=== PATIENT | male | born 1965 | race Caucasian/White ===

== ENCOUNTER 2024-01-19 12:01 | Observation (INO) | payer BC ==
[2024-01-19] MEDS ORDERED: Nitroglycerin 0.4 MG TAB 1 EACH ONE ×2 (12:36→13:51)
[2024-01-19] MEDS ORDERED: Aspirin Chewable 81 MG TAB ONE (12:36)
[2024-01-19 13:11] LABS: #Basophils 0.05 10x3/uL (0.0-0.2); %Basophils 0.7 % (0.0-1.0); %Eosinophils 3.6 % (0.0-10.0); %Lymphocytes 25.8 % (21.0-51.0); %Monocytes 7.9 % (0.0-10.0); %Neutrophils 61.6 % (42.0-75.0); Hematocrit 48.6 % (42.0-52.0); Hemoglobin 16.3 g/dL (14.0-18.0); Mean Corpuscular HGB CONC 33.5 g/dL (32.0-36.0); Mean Corpuscular Hemoglobin 28.7 pg (27.0-31.0); Mean Corpuscular Volume 85.7 fL (78.0-98.0); Mean Platelet Volume 9.9 fL (7.4-10.4); Platelet Count 215 10x3/uL (130-400); RBC Distribution Width 14.4 % (11.5-14.5); Red Blood Cell (RBC) Count 5.67 mill/uL (4.70-6.10)
[2024-01-19 13:28] LABS: ALT (SGPT) 12 U/L (8-55); AST (SGOT) 12 U/L (5-34); Albumin 3.4 g/dL (3.5-5.0); Alkaline Phosphatase 77 U/L (40-110); Anion Gap 12 mmol/L (10-20); BUN (Urea Nitrogen) 22 mg/dL (8.4-25.7); Bilirubin, Total 0.4 mg/dL (0.2-1.2); Calc. Creatinine Clearance 0 mL/min (70-130); Calcium 9.4 mg/dL (7.8-10.44); Carbon Dioxide 23 mmol/L (22-29); Chloride 109 mmol/L (98-107); Estimated GFR 59; Globulin 3.4 g/dL (2.4-3.5); Glucose 116 mg/dL (70-105); Lipase 13 U/L (8-78); Magnesium 2.1 mg/dL (1.6-2.6); Potassium 4.3 mmol/L (3.5-5.1); Protein, Total 6.8 g/dL (6.0-8.3); Sodium 140 mmol/L (136-145)
[2024-01-19 13:31] LABS: Troponin I Less than 0.010 ng/mL (< 0.028)
[2024-01-19] MEDS ORDERED: Nitroglycerin 2% Ointment 1 INCH/1 GM Packet ONE (13:52)
[2024-01-19] MEDS ORDERED: Nitroglycerin 0.4 MG TAB (25 Tab Bottle) SL PRN (14:16)
[2024-01-19 15:59] LABS: Troponin I Less than 0.010 ng/mL (< 0.028)
[2024-01-19 16:01] VITALS: BMI 29.2
[2024-01-19] MEDS ORDERED: FLU (Fluarix Triv) TS24-25(6MOS UP)/PF 45 MCG/0.5 ML Syringe IM ONE (16:45)
[2024-01-19 19:10] LABS: Troponin I 0.051 ng/mL (< 0.028)
[2024-01-19] MEDS: Famotidine 20 MG TAB PO SCH (21:01)
[2024-01-19] MEDS: Nitroglycerin 2% Ointment 1 INCH/1 GM Packet TOP SCH (21:01)
[2024-01-20 04:46] LABS: Anion Gap 10 mmol/L (10-20); BUN (Urea Nitrogen) 17 mg/dL (8.4-25.7); Calc. Creatinine Clearance 91 mL/min (70-130); Calcium 8.8 mg/dL (7.8-10.44); Carbon Dioxide 24 mmol/L (22-29); Chloride 108 mmol/L (98-107); Estimated GFR 78; Glucose 83 mg/dL (70-105); Potassium 4.1 mmol/L (3.5-5.1); Sodium 138 mmol/L (136-145)
[2024-01-20] MEDS: Aspirin Chewable 81 MG TAB PO SCH (08:20)
[2024-01-20] MEDS: Enoxaparin 40 MG (0.4 mL) SYRINGE SC SCH (08:21)
[2024-01-20 08:23] LABS: Troponin I 0.149 ng/mL (< 0.028)
[2024-01-21] MEDS: Acetaminophen 325 MG TAB PO PRN (03:32)
[2024-01-21 06:06] LABS: Cardiac Risk 5.4 (Less than 4.5)
[2024-01-21] MEDS ORDERED: Heparin 10,000 UNITS/ 10 ML VIAL ONE (10:28)
[2024-01-21] MEDS ORDERED: Nitroglycerin 50 MG/250 ML BOT 0 ML ONE (10:29)
[2024-01-21] MEDS ORDERED: Iopamidol 370 76% 100 ML VIAL ONE (10:44)
[2024-01-21] MEDS ORDERED: Midazolam HCl 2 mg/2 ml Vial ONE (11:07)
[2024-01-21] MEDS ORDERED: fentaNYL 50 mcg/mL 1 mL Vial ONE (11:07)
[2024-01-21] MEDS ORDERED: Protamine Sulfate 50 MG/5 ML VIAL ONE (11:42)
[2024-01-21] MEDS ORDERED: Nitroglycerin 0.4 MG TAB (25 Tab Bottle) SL PRN (11:56)
[2024-01-21] MEDS ORDERED: Sodium Chloride 0.9% 200 ML IV PRN (11:56)
[2024-01-21] MEDS ORDERED: Acetaminophen/Codeine 30-300mg Tablet PO PRN ×2 (11:56)
[2024-01-21] MEDS ORDERED: Sodium Chloride 0.9% 1,000 ML IV SCH (12:00)
[2024-01-21 16:52] VITALS: BP 121/71; TEMP 97.9
[2024-01-21] MEDS ORDERED: Atorvastatin Calcium 40 MG TAB PO SCH (21:00)
[2024-01-22] MEDS ORDERED: Lisinopril 2.5 MG TAB PO SCH (09:00)
[2024-01-22] MEDS ORDERED: Dapagliflozin Propanediol 10 MG TAB PO SCH (09:00)
== END 2024-01-21 19:23 | disposition home or self-care (01) ==
LOC: ERS 12:01 → 2SW 15:55 → OBS 01-20 11:00
PROVIDERS: ADMIT Internal Medicine; ATTEND Internal Medicine
PROC: B246ZZZ Ultrasonography of Right and Left Heart (ICD-10-PCS; principal; 2024-01-21)
PROC: 4A023N7 Measurement of Cardiac Sampling and Pressure, Left Heart, Percutaneous Approach (ICD-10-PCS; 2024-01-21)
PROC: B205YZZ Plain Radiography of Left Heart using Other Contrast (ICD-10-PCS; 2024-01-21)
DX: R07.89 Other chest pain (principal); I42.9 Cardiomyopathy, unspecified; I21.4 Non-ST elevation (NSTEMI) myocardial infarction; K21.9 Gastro-esophageal reflux disease without esophagitis; N17.9 Acute kidney failure, unspecified; Z79.82 Long term (current) use of aspirin; Z79.899 Other long term (current) drug therapy; Z87.19 Personal history of other diseases of the digestive system; F17.210 Nicotine dependence, cigarettes, uncomplicated
CPT/HCPCS: 36415; 36416; 71045; 80048; 80053; 80061; 83690; 83735; 83880; 84484; 85025; 85347; 93005; 93306; 93458; 96372; 99152; C1769; G0378; J1644; J1650; J2250; J2720; J3010; Q9967